=== PATIENT | female | born 1990 | race Caucasian/White ===

== ENCOUNTER 2020-11-02 19:15 | Observation (INO) | payer OTHER, SELFPAY ==
[2020-11-02 19:29] VITALS: BP 138/76; PULSE 69; RESP 16; TEMP 36.8; O2SAT 97; BMI 26.9
[2020-11-02 19:43] LABS: Bacteria Urine None Seen; RBC Urine None Seen (0-5/HPF); WBC Urine None Seen (0-5/HPF)
[2020-11-02 19:47] LABS: Pregnancy Test Urine Positive (Negative)
[2020-11-02 19:48] LABS: Appearance Urine UA CLEAR; Bilirubin Urine UA NEGATIVE (NEGATIVE); Color Urine UA YELLOW; Glucose Urine UA NEGATIVE (Negative); Ketones Urine UA TRACE (NEGATIVE); Leukocyte Esterase Urine UA NEGATIVE (NEGATIVE); Nitrite Urine UA NEGATIVE (Negative); Occult Blood Urine UA 2+ (Negative); Protein Urine UA NEGATIVE (Negative); Specific Gravity Urine UA 1.025 (1.000-1.035); Urobilinogen Urine UA 0.2 E.U./dL (0.2)
[2020-11-02 19:56] LABS: Culture Indicated Urine Cult Not Indicated; Squamous Epithelial Cell Urine 1-5 /HPF (0-5/HPF)
--- NOTE | 2020-11-02 19:57 | DI.US.S_ITS ---
PROCEDURE: US PELVIC COMPLETE INDICATIONS: medical 09/29 and bleeding TECHNIQUE: Real-time scanning was performed of the pelvic organs, with image documentation. Additional endovaginal scanning was necessary due to incomplete visualization of the adnexal and endometrial structures by transabdominal scanning. COMPARISON: None. FINDINGS: Uterus: Uterus is normal anteverted measuring 8.6 x 3.9 x 3.7 cm. The endometrium measures 3.8 mm in combined thickness. Note is made of a nabothian cyst. Ovaries: Right ovary measures 3.8 x 2.9 x 2.0 cm. Right ovary is normal in echotexture. Left ovary measures 5.9 x 3.0 x 3.1 cm. There is a 2.3 x 1.6 x 2.8 cm complex cyst with thick wall in the left ovary with internal vascularity. In addition, there is a 2.3 x 2.6 x 1.8 cm hyperechoic masslike structure with internal vascularity in the the left adnexa. Other: There is a moderate amount of free pelvic fluid. There is mild debris within the urinary bladder. IMPRESSION: 1. No retained products of conception in the uterine cavity. 2. There is a 2.3 x 1.6 x 2.8 cm complex cystic structure with thick wall in the left ovary with internal vascularity. Cannot rule out ectopic . Please correlate with sequential beta HCG. 3. A 2.3 x 2.6 x 1.8 cm hypoechoic masslike structure in the left adnexa. This could represent an ovarian dermoid. Comparison to prior outside exam would be helpful. 4. Moderate amount of free fluid in pelvis. 5. Mild debris in the urinary bladder. The result was discussed with Dr. Madden. Dictated by: Bentley Rollins M.D. on 11/02/2020 at 21:12 Approved by: Bentley Rollins M.D. on 11/02/2020 at 21:24
[2020-11-02 20:32] LABS: Add Manual Diff / Slide Review NO; Basophils Absolute Auto 100 /uL (0-100); Basophils Percent Auto 0.9 % (0-2); Eosinophils Absolute Auto 100 /uL (0-450); Eosinophils Percent Auto 1.5 % (2-4); Hematocrit 38.4 % (36-46); Hemoglobin 12.9 g/dL (12.0-16.0); Lymphocytes Absolute Auto 3400 /uL (1100-4500); Lymphocytes Percent Auto 35.1 % (25-40); Mean Corpuscular HGB Conc 33.6 % (30-36); Mean Corpuscular Hemoglobin 29.6 PG (26-34); Monocytes Absolute Auto 500 /uL (0-900); Monocytes Percent Auto 5.4 % (3-14); Neutrophils Absolute Auto 5500 /uL (1500-7000); Neutrophils Percent Auto 57.1 % (50-75); Platelet Count 246 X10^3/uL (150-400); Red Blood Cell Count 4.36 X10^6/uL (4.0-5.2); Red Cell Distribution Width 12.6 % (11.6-14.8); White Blood Cell Count 9.7 X10^3/uL (4.5-11.0)
[2020-11-02 20:46] LABS: Alanine Aminotransferase 16 IU/L (<35); Albumin 4.4 g/dL (3.5-5.0); Albumin Globulin Ratio 1.4 (1.0-2.8); Alkaline Phosphatase 57 U/L (38-126); Aspartate Aminotransferase 22 IU/L (14-36); BUN Creatinine Ratio 23.7 (6-22); Bilirubin Total 0.2 mg/dL (0.2-1.3); Blood Urea Nitrogen 23 mg/dL (7-17); Carbon Dioxide 24 mmol/L (22-32); Chloride 105 mmol/L (98-107); Estimated Glomerular Filt Rate > 60.0 mL/min (>60); Globulin 3.1 g/dL (1.7-4.1); Glucose 79 mg/dL (70-100); HEMOLYSIS < 15 (0-50); Potassium 3.6 mmol/L (3.4-5.1); Sodium 139 mmol/L (137-145); Total Protein 7.5 g/dL (6.3-8.2)
[2020-11-02 21:02] LABS: HCG Quantitative /Beta subunit 227.1 mIU/mL
--- NOTE | 2020-11-02 21:30 | ED_ITS ---
HPI - Female Genitourinary General Chief complaint: Abdominal Pain Stated complaint: ABD PAIN Time Seen by Provider: 11/02/20 21:03 Source: patient Mode of arrival: Ambulatory Limitations: no limitations History of Present Illness HPI Narrative: This is a 30-year-old A1 who had her last menstrual period on 08/27/2020. Patient had medication induced on 09/28/2020 with [facility] [place] in [place]. Patient states she passed tissue the following day. She has continued to have spotting although it has been tapering off. She has continued to have positive HCG testing strips which were provided by her providers at the Center. She states they did not do a serum hCG level that she is aware. And they sent her home with strips as well. She states she did have an ultrasound around the 19 of October which did not show any intrauterine and had at least one prior US for comparison. Today she came in because she developed significant increase in pain in her mid-pelvic region which has since improved. She describes it as being very intense causing her to double over and and since slowly improved. She has not noticed a large increase in vaginal bleeding but has continued light spotting. She denies fevers or chills. No chest pain, shortness of breath, no nausea or vomiting. No other GI or urinary symptoms. Patient states she is on oral contraceptives. She denies any other regular medications. Denies any other medical issues or prior surgeries. She also noted her menses is typically twice monthly. Related Data Home Medications Medication Instructions Recorded Confirmed norethindrone (contraceptive) 0.35 mg PO DAILY 11/02/20 11/02/20 [[place]-BE] Allergies Allergy/AdvReac Type Severity Reaction Status Date / Time No Known Allergies Allergy Uncoded 11/02/20 22:36 Review of Systems Review of Systems ROS Unobtainable: All systems reviewed & are unremarkable except as noted in HPI and below Patient History Substance Use Type: does not use Exam Narrative Exam Narrative: GENERAL: Alert and oriented x three, well-nourished female in mild distress. Patient is sitting on the edge of the bed but appears fairly comfortable HEENT: Head normocephalic, atraumatic, EOMI, pupils reactive, face symmetric, moist mucous membranes NECK: Supple, full range of motion CARDIOVASCULAR: Regular rate and rhythm without murmurs, rubs or gallops. RESPIRATORY: Breath sounds equal bilaterally, no wheezes rales or rhonchi. ABDOMEN: Soft, mild pelvic tenderness. Normoactive bowel sounds all 4 quadrants. No guarding or rebound, rigidity, no mass : No CVA tenderness EXTREMITIES: Normal range of motion, no clubbing or edema. Neurovascularly intact NEUROLOGICAL: Cranial nerves II through XII grossly intact. Moving all extremities SKIN: Warm, dry, no petechiae, no rashes or lesions. Initial Vital Signs Initial Vital Signs: Vital Signs Temperature 98.2 F 11/02/20 19:29 Pulse Rate 69 11/02/20 19:29 Respiratory Rate 16 11/02/20 19:29 Blood Pressure 138/76 11/02/20 19:29 Pulse Oximetry 97 11/02/20 19:29 Course Orders Ordered: ED Orders 11/02/20 19:38 Test Urine Stat Urinalysis and Microscopic Stat 11/02/20 19:57 US pelvic complete Stat 11/02/20 20:15 ABO RH Type Stat Antibody Screen Stat Complete Blood Count AUTO DIFF Stat Comprehensive Metabolic Panel Stat HCG Quantitative /Beta subunit Stat 11/02/20 22:18 COVID19 - ADMIT ([employer] swab/PCR) Stat Lactated Ringer's (Lactated Ringers) 1,000 mls @ 100 mls/hr IV CONT ANGELIKA Last Admin: 11/02/20 23:36 Dose: 100 mls/hr Documented by: BENIGNO Discontinued Medications Sodium Chloride (Normal Saline 0.9%) 1,000 mls @ 100 mls/hr IV CONT ANGELIKA Last Infusion: 11/02/20 23:36 Dose: 0 mls/hr Documented by: Infusion: 11/02/20 23:00 Dose: 100 mls/hr Documented by: [email or web address] Admin: 11/02/20 22:47 Dose: 100 mls/hr Documented by: [email or web address] Consultations Consultation #1: Dr. Bernabe covering for ob. Will talk with Dr. Apple from OB and have them contact us. Time: 21:51 Consultation #2: Dr. Apple in the department to evaluate the patient. Plan for observation with serial exams overnight with possible OR tomorrow. There is concern for ectopic but also some atypical features that make her suspicious for other potential causes. Vital Signs Vital signs: Vital Signs - 8 hr 11/02/20 22:00 Pulse Rate 64 Respiratory Rate 14 Blood Pressure 128/69 Pulse Oximetry 98 MDM - Female Genitourinary Lab Data Attestation: I reviewed the patient's lab results. Result diagrams: 11/02/20 20:15 11/02/20 20:15 Labs: Lab Results 11/02/20 11/02/20 11/02/20 Range/Units 19:38 19:38 20:15 WBC 9.7 (4.5-11.0) X10^3/uL RBC 4.36 (4.0-5.2) X10^6/uL Hgb 12.9 (12.0-16.0) g/dL Hct 38.4 (36-46) % MCV 88.0 (80-100) fL MCH 29.6 (26-34) PG MCHC 33.6 (30-36) % RDW 12.6 (11.6-14.8) % Plt Count 246 (150-400) X10^3/uL Neut % (Auto) 57.1 (50-75) % Lymph % (Auto) 35.1 (25-40) % [place] % (Auto) 5.4 (3-14) % Eos % (Auto) 1.5 L (2-4) % Baso % (Auto) 0.9 (0-2) % Neut # (Auto) 5500 (8982-4130) /uL Lymph # (Auto) 3400 (7110-2584) /uL [place] # (Auto) 500 (0-900) /uL Eos # (Auto) 100 (0-450) /uL Baso # (Auto) 100 (0-100) /uL Sodium (137-145) mmol/L Potassium (3.4-5.1) mmol/L Chloride (98-107) mmol/L Carbon Dioxide (22-32) mmol/L BUN (7-17) mg/dL Creatinine (0.52-1.04) mg/dL Estimated GFR (>60) mL/min BUN/Creatinine Ratio (6-22) Glucose (70-100) mg/dL Calcium (8.4-10.2) mg/dL Total Bilirubin (0.2-1.3) mg/dL AST (14-36) IU/L ALT (<35) IU/L Alkaline Phosphatase (38-126) U/L Total Protein (6.3-8.2) g/dL Albumin (3.5-5.0) g/dL Globulin (1.7-4.1) g/dL Albumin/Globulin Ratio (1.0-2.8) HCG, Quant mIU/mL Urine Color Yellow Urine Appearance Clear Urine pH 7.0 (4.5-8.0) Ur Specific [place] 1.025 (1.000-1.035) Urine Protein Negative (Negative) Urine Glucose (UA) Negative (Negative) g/dL Urine Ketones Trace H (NEGATIVE) Urine Occult Blood 2+ H (Negative) Urine Nitrate Negative (Negative) Urine Bilirubin Negative (NEGATIVE) Urine Urobilinogen 0.2 (0.2) E.U./dL Ur Leukocyte Esterase Negative (NEGATIVE) Urine RBC None seen (0-5/HPF) Urine WBC None seen (0-5/HPF) Ur Squamous Epith Cells 1-5 /hpf (0-5/HPF) Urine Bacteria None seen (None) Ur Culture Indicated? Cult not indicated Urine Test Positive H (Negative) SARS-CoV-2 (PCR) (Negative) Blood Type Antibody Screen 11/02/20 11/02/20 11/02/20 Range/Units 20:15 20:15 22:18 WBC (4.5-11.0) X10^3/uL RBC (4.0-5.2) X10^6/uL Hgb (12.0-16.0) g/dL Hct (36-46) % MCV (80-100) fL MCH (26-34) PG MCHC (30-36) % RDW (11.6-14.8) % Plt Count (150-400) X10^3/uL Neut % (Auto) (50-75) % Lymph % (Auto) (25-40) % [place] % (Auto) (3-14) % Eos % (Auto) (2-4) % Baso % (Auto) (0-2) % Neut # (Auto) (1981-6630) /uL Lymph # (Auto) (1518-3642) /uL [place] # (Auto) (0-900) /uL Eos # (Auto) (0-450) /uL Baso # (Auto) (0-100) /uL Sodium 139 (137-145) mmol/L Potassium 3.6 (3.4-5.1) mmol/L Chloride 105 (98-107) mmol/L Carbon Dioxide 24 (22-32) mmol/L BUN 23 H (7-17) mg/dL Creatinine 0.97 (0.52-1.04) mg/dL Estimated GFR > 60.0 (>60) mL/min BUN/Creatinine Ratio 23.7 H (6-22) Glucose 79 (70-100) mg/dL Calcium 9.0 (8.4-10.2) mg/dL Total Bilirubin 0.2 (0.2-1.3) mg/dL AST 22 (14-36) IU/L ALT 16 (<35) IU/L Alkaline Phosphatase 57 (38-126) U/L Total Protein 7.5 (6.3-8.2) g/dL Albumin 4.4 (3.5-5.0) g/dL Globulin 3.1 (1.7-4.1) g/dL Albumin/Globulin Ratio 1.4 (1.0-2.8) HCG, Quant 227.1 mIU/mL Urine Color Urine Appearance Urine pH (4.5-8.0) Ur Specific [place] (1.000-1.035) Urine Protein (Negative) Urine Glucose (UA) (Negative) g/dL Urine Ketones (NEGATIVE) Urine Occult Blood (Negative) Urine Nitrate (Negative) Urine Bilirubin (NEGATIVE) Urine Urobilinogen (0.2) E.U./dL Ur Leukocyte Esterase (NEGATIVE) Urine RBC (0-5/HPF) Urine WBC (0-5/HPF) Ur Squamous Epith Cells (0-5/HPF) Urine Bacteria (None) Ur Culture Indicated? Urine Test (Negative) SARS-CoV-2 (PCR) Negative (Negative) Blood Type O Positive Antibody Screen Negative Imaging Data US - OB: Radiologist's Impression: Ronda Diaz 30 F [address] [id number] ReportSigned Patient: Ronda DiazMR#: [id number]: 1990Acct:[id number]/Sex: 30 / FDate of Service: 11/02/20Loc: EDAccession Number: [id number] Procedure: US pelvic complete Ordering Provider: Marla Madden D.O. PROCEDURE: US PELVIC COMPLETE INDICATIONS: medical / and bleeding TECHNIQUE: Real-time scanning was performed of the pelvic organs, with image documentation. Additional endovaginal scanning was necessary due to incomplete visualization of the adnexal and endometrial structures by transabdominal scanning. COMPARISON: None. FINDINGS: Uterus: Uterus is normal anteverted measuring 8.6 x 3.9 x 3.7 cm. The endometrium measures 3.8 mm in combined thickness. Note is made of a nabothian cyst. Ovaries: Right ovary measures 3.8 x 2.9 x 2.0 cm. Right ovary is normal in echotexture. Left ovary measures 5.9 x 3.0 x 3.1 cm. There is a 2.3 x 1.6 x 2.8 cm complex cyst with thick wall in the left ovary with internal vascularity. In addition, there is a 2.3 x 2.6 x 1.8 cm hyperechoic masslike structure with internal vascularity in the the left adnexa. Other: There is a moderate amount of free pelvic fluid. There is mild debris within the urinary bladder. IMPRESSION: 1. No retained products of conception in the uterine cavity. 2. There is a 2.3 x 1.6 x 2.8 cm complex cystic structure with thick wall in the left ovary with internal vascularity. Cannot rule out ectopic . Please correlate with sequential beta HCG. 3. A 2.3 x 2.6 x 1.8 cm hypoechoic masslike structure in the left adnexa. This could represent an ovarian dermoid. Comparison to prior outside exam would be helpful. 4. Moderate amount of free fluid in pelvis. 5. Mild debris in the urinary bladder. The result was discussed with Dr. Madden. Dictated by: Bentley Rollins M.D. on 11/02/2020 at 21:12 Approved by: Bentley Rollins M.D. on 11/02/2020 at 21:24 MDM Narrative Medical decision making narrative: Attempted to contact [facility] in [place] to get prior ultrasound reports/visits but were unable to contact. But by patient report she had negative ultrasound last 2 weeks. Ultrasound shows changes concerning for possible ectopic although there is also an area of cystic changes in the adnexa as well. Patient's hCG today is 220 range, and we do not have priors for comparison but she has had persistently positive HCGs since her medically induced with my for mifepristone and misoprostol at 5 weeks by dates. Patient is much more comfortable at this time. Discussed with TEST MAN Dr. Apple who evaluated patient in the department and plans to watch patient overnight with serial exams, repeat labs and observation for potential emergent laparoscopy overnight if any concerning changes. Discharge Plan Departure Patient Disposition: Admitted as Observation Clinical Impression: , ectopic Admit Date/Time: 11/02/20 22:32 Admit Provider: Cristel Apple
[2020-11-02 22:00] VITALS: BP 128/69; PULSE 64; RESP 14; O2SAT 98
--- NOTE | 2020-11-02 22:35 | P.HP_ITS ---
History of Present Illness History of Present Illness Date Patient Seen: 11/02/20 Time Patient Seen: 22:35 Date of Onset of Symptoms: 11/02/20 Chief complaint: ABD PAIN Narrative: This patient is a 30 yo 4 weeks s/p medication on 09/28, presenting with a short period of worsening lower abdominal pain now improved to a dull ache. The patient reports that she presented to [facility] [place] in [place], where a transvaginal ultrasound was performed and an intrauterine was confirmed. She underwent a medication with mifepristone and misoprostol, and reports that she passed a moderate amount of tissue with severe cramping that improved over several days. Her bleeding slowed significantly, but she continued to have some pelvic pressure and intermittent spotting, and re-presented to [facility] on 10/19. She underwent a repeat transvaginal ultrasound, where she reports that she was shown the images, told her pressure was unrelated to an ongoing process and that all of her POCs had passed, and told that it could be a total of 4-6 weeks before her B-HCG decreased to undetectable. Early this afternoon, she developed severe cramping and lower abdominal pressure, leading her to present to the ED. Her vaginal bleeding remains unchanged, and she denies dizziness, fevers, chills, nausea, vomiting, UTI symptoms, change in bowel habits, or any systemic symptoms. She declined pain medications in the ED, and reports that over her few hours of observation her pain has decreased significantly to a dull ache. She has been taking OCPs since a few days after the medication , and reports that she reliably remembers this medication. 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 She has a history of HPV but denies any other history of STDs, PID, or pelvic infection. She denies any history of obstetrics and gynecology professor or any other surgery, and denies any other significant medical, family, or social history. Patient History Family & Social History Safety & Behavioral: Feels Safe in Current Yes Environment Been Physically Hurt or No Threatened By a Person Tobacco & Substance use: Smoking Status Former smoker Substance Use Type does not use Meds Home Medications and Allergies Home Medications Medication Instructions Recorded Confirmed Type valacyclovir 2,000 mg PO Q12H 1 Days #0 tab 04/29/17 Rx Allergies Allergy/AdvReac Type Severity Reaction Status Date / Time No Known Allergies Allergy Uncoded 11/02/20 22:36 Review of Systems Constitutional Constitutional: Reports system reviewed and no additional complaints, except as documented Cardiovascular Cardiovascular: Reports system reviewed and no additional complaints, except as documented Respiratory Respiratory: Reports system reviewed and no additional complaints, except as documented Gastrointestinal Gastrointestinal: Reports as per HPI Genitourinary Genitourinary: Reports as per HPI Neurologic Neurologic: Reports system reviewed and no additional complaints, except as documented Exam Vital Signs (past 8 hours): - 11/02/20 19:29 Temperature 98.2 F Pulse Rate 69 Respiratory Rate 16 Blood Pressure 138/76 Pulse Oximetry 97 Oxygen Delivery Method Room Air Const General: cooperative, healthy appearing, comfortable and well groomed Other: Sitting up on end of bed, gently swinging legs while relaying history with no obvious discomfort. GI Palpation: soft and tender (mild LLQ tenderness, no rebound or guarding.) Extrem General: normal to inspection Objective Labs Result Diagrams: 11/02/20 20:15 11/02/20 20:15 Labs: Laboratory Results - last 24 hr 11/02/20 11/02/20 11/02/20 19:38 19:38 20:15 WBC 9.7 RBC 4.36 Hgb 12.9 Hct 38.4 MCV 88.0 MCH 29.6 MCHC 33.6 RDW 12.6 Plt Count 246 Neut % (Auto) 57.1 Lymph % (Auto) 35.1 [place] % (Auto) 5.4 Eos % (Auto) 1.5 L Baso % (Auto) 0.9 Neut # (Auto) 5500 Lymph # (Auto) 3400 [place] # (Auto) 500 Eos # (Auto) 100 Baso # (Auto) 100 Sodium Potassium Chloride Carbon Dioxide BUN Creatinine Estimated GFR BUN/Creatinine Ratio Glucose Calcium Total Bilirubin AST ALT Alkaline Phosphatase Total Protein Albumin Globulin Albumin/Globulin Ratio HCG, Quant Urine Color Yellow Urine Appearance Clear Urine pH 7.0 Ur Specific [place] 1.025 Urine Protein Negative Urine Glucose (UA) Negative Urine Ketones Trace H Urine Occult Blood 2+ H Urine Nitrate Negative Urine Bilirubin Negative Urine Urobilinogen 0.2 Ur Leukocyte Esterase Negative Urine RBC None seen Urine WBC None seen Ur Squamous Epith Cells 1-5 /hpf Urine Bacteria None seen Ur Culture Indicated? Cult not indicated Urine Test Positive H Blood Type 11/02/20 11/02/20 20:15 20:15 WBC RBC Hgb Hct MCV MCH MCHC RDW Plt Count Neut % (Auto) Lymph % (Auto) [place] % (Auto) Eos % (Auto) Baso % (Auto) Neut # (Auto) Lymph # (Auto) [place] # (Auto) Eos # (Auto) Baso # (Auto) Sodium 139 Potassium 3.6 Chloride 105 Carbon Dioxide 24 BUN 23 H Creatinine 0.97 Estimated GFR > 60.0 BUN/Creatinine Ratio 23.7 H Glucose 79 Calcium 9.0 Total Bilirubin 0.2 AST 22 ALT 16 Alkaline Phosphatase 57 Total Protein 7.5 Albumin 4.4 Globulin 3.1 Albumin/Globulin Ratio 1.4 HCG, Quant 227.1 Urine Color Urine Appearance Urine pH Ur Specific [place] Urine Protein Urine Glucose (UA) Urine Ketones Urine Occult Blood Urine Nitrate Urine Bilirubin Urine Urobilinogen Ur Leukocyte Esterase Urine RBC Urine WBC Ur Squamous Epith Cells Urine Bacteria Ur Culture Indicated? Urine Test Blood Type O Positive Assessment & Plan Assessment & Plan narrative: This patient presents approximately 1 month after a medication at an accredited center, with reported confirmed intrauterine prior to the procedure and reporting no abnormalities on follow up transvaginal US. She has been reliably taking OCPs since the procedure, and though she still has a low BHCG blood level, her initial level is unknown. Given her adnexal findings and her B-HCG, ectopic is certainly on the differential, but the patient is stable, improving, and well appearing. Her presentation is also consistent with a ruptured corpus luteum or other ovarian cyst, and she appears to be improving without treatment, with no indication of ongoing hemorrhage. The patient strongly desires to avoid surgery unless necessary, but lives in [place], remote from the hospital. We discussed the above differential at length including the risks and benefits of admission for monitoring and expectant management vs. diagnostic laparoscopy, and the patient vocalized understanding. She will be admitted overnight for serial abdominal exams, repeat labs in the morning, and request for records of her prior US in the AM when the clinic is open. - Patient to remain NPO - CBC to be repeated in AM - LR @ 100ccs/hr overnight - VS q4 - notify physician if patient requires pain medications - repeat abdominal exam in AM, discussed potential for emergent laparoscopy overnight if symptoms or VS worsen
[2020-11-02] MEDS: SODIUM CHLORIDE 0.9% 1,000 ML 100 ML IV (22:47)
[2020-11-02 23:00] VITALS: BP 100/58; PULSE 56; RESP 16; TEMP 36.3; O2SAT 93
[2020-11-02 23:16] LABS: COVID19 - ADMIT (NP swab/PCR) Negative (Negative)
[2020-11-02] MEDS: LACTATED RINGERS 1,000 ML 100 ML IV (23:36)
[2020-11-02 23:39] VITALS: BMI 26.7
[2020-11-02 23:45] VITALS: BP 100/48
[2020-11-03 01:01] VITALS: BP 86/46; PULSE 50
[2020-11-03 01:33] VITALS: BP 90/46; PULSE 54
--- NOTE | 2020-11-03 01:35 | PC.NURSE ---
patient admitted to room 221 from ER per wheelchair. Is alert and oriented. Breath sounds CTA with RA sat of 93%. HRR but bradycardic with rate in 50's. Denies nausea. Came to ER with severe abdominal pain but states pain is tolerable at 2/10 in lower abdomen at this time. BT present and abdomen is soft but tender. Denies dysuria, frequency or urgency with urination. Is having some vaginal spotting. Is able to move herself in bed. Bilateral calf SCD's were applied. Instructed to call for SBA when getting out of bed and she verbalizes understanding. Fall risk score is low. Will be NPO at this time. Oriented to call light and bed controls. Noted BP at 0101 was 86/46 so rechecked now and is 90/46. Denies any dizziness/lightheadedness and denies any further pain at this time.
[2020-11-03 03:00] VITALS: BP 91/51; PULSE 51
[2020-11-03 05:00] VITALS: BP 97/52; PULSE 62; RESP 18; TEMP 36.6; O2SAT 98
[2020-11-03 05:58] LABS: Add Manual Diff / Slide Review NO; Basophils Absolute Auto 100 /uL (0-100); Basophils Percent Auto 0.9 % (0-2); Eosinophils Absolute Auto 200 /uL (0-450); Eosinophils Percent Auto 2.3 % (2-4); Hematocrit 35.1 % (36-46); Hemoglobin 11.9 g/dL (12.0-16.0); Lymphocytes Absolute Auto 3100 /uL (1100-4500); Lymphocytes Percent Auto 42.1 % (25-40); Mean Corpuscular HGB Conc 33.9 % (30-36); Mean Corpuscular Hemoglobin 29.6 PG (26-34); Mean Corpuscular Volume 87.5 fL (80-100); Monocytes Absolute Auto 400 /uL (0-900); Monocytes Percent Auto 5.8 % (3-14); Neutrophils Absolute Auto 3500 /uL (1500-7000); Neutrophils Percent Auto 48.9 % (50-75); Platelet Count 219 X10^3/uL (150-400); Red Blood Cell Count 4.02 X10^6/uL (4.0-5.2); Red Cell Distribution Width 12.8 % (11.6-14.8); White Blood Cell Count 7.3 X10^3/uL (4.5-11.0)
[2020-11-03 07:00] VITALS: BP 94/45; PULSE 74; RESP 18; TEMP 36.9; O2SAT 99
--- NOTE | 2020-11-03 07:47 | PM.PN.1 ---
Subjective Subjective Date Patient Seen: 11/03/20 Time Patient Seen: 07:30 Interval history: This patient is admitted for concern for ectopic versus ruptured hemorrhagic corpus luteum cyst. This morning, the patient reports that her pain is a 1-2/10 when she changes position, but she is otherwise feeling well. She is ambulating, has normal bowel bladder habits, and has been kept NPO overnight. Her vital signs are stable, and her hemoglobin has dropped slightly in the setting of ongoing IV hydration. Exam Vital Signs (past 8 hours): - 11/03/20 01:01 11/03/20 01:33 11/03/20 03:00 Temperature Pulse Rate 50 L 54 L 51 L Respiratory Rate Blood Pressure 86/46 L 90/46 L 91/51 L Pulse Oximetry 11/03/20 05:00 Temperature 97.9 F Pulse Rate 62 Respiratory Rate 18 Blood Pressure 97/52 L Pulse Oximetry 98 Oxygen Delivery Method Room Air Oxygen Flow Rate 0 Resp Effort & Inspection: normal respiratory effort Auscultation: clear to auscultation bilaterally Cardio Rate: regular rate Rhythm: regular rhythm GI Palpation: soft and tender (Mild, left lower quadrant) Objective Labs Result Diagrams: 11/03/20 11:35 11/02/20 20:15 Labs: Laboratory Results - last 24 hr 11/02/20 11/02/20 11/02/20 19:38 19:38 20:15 WBC 9.7 RBC 4.36 Hgb 12.9 Hct 38.4 MCV 88.0 MCH 29.6 MCHC 33.6 RDW 12.6 Plt Count 246 Neut % (Auto) 57.1 Lymph % (Auto) 35.1 [place] % (Auto) 5.4 Eos % (Auto) 1.5 L Baso % (Auto) 0.9 Neut # (Auto) 5500 Lymph # (Auto) 3400 [place] # (Auto) 500 Eos # (Auto) 100 Baso # (Auto) 100 Sodium Potassium Chloride Carbon Dioxide BUN Creatinine Estimated GFR BUN/Creatinine Ratio Glucose Calcium Total Bilirubin AST ALT Alkaline Phosphatase Total Protein Albumin Globulin Albumin/Globulin Ratio HCG, Quant Urine Color Yellow Urine Appearance Clear Urine pH 7.0 Ur Specific [place] 1.025 Urine Protein Negative Urine Glucose (UA) Negative Urine Ketones Trace H Urine Occult Blood 2+ H Urine Nitrate Negative Urine Bilirubin Negative Urine Urobilinogen 0.2 Ur Leukocyte Esterase Negative Urine RBC None seen Urine WBC None seen Ur Squamous Epith Cells 1-5 /hpf Urine Bacteria None seen Ur Culture Indicated? Cult not indicated Urine Test Positive H SARS-CoV-2 (PCR) Blood Type Antibody Screen 11/02/20 11/02/20 11/02/20 20:15 20:15 22:18 WBC RBC Hgb Hct MCV MCH MCHC RDW Plt Count Neut % (Auto) Lymph % (Auto) [place] % (Auto) Eos % (Auto) Baso % (Auto) Neut # (Auto) Lymph # (Auto) [place] # (Auto) Eos # (Auto) Baso # (Auto) Sodium 139 Potassium 3.6 Chloride 105 Carbon Dioxide 24 BUN 23 H Creatinine 0.97 Estimated GFR > 60.0 BUN/Creatinine Ratio 23.7 H Glucose 79 Calcium 9.0 Total Bilirubin 0.2 AST 22 ALT 16 Alkaline Phosphatase 57 Total Protein 7.5 Albumin 4.4 Globulin 3.1 Albumin/Globulin Ratio 1.4 HCG, Quant 227.1 Urine Color Urine Appearance Urine pH Ur Specific [place] Urine Protein Urine Glucose (UA) Urine Ketones Urine Occult Blood Urine Nitrate Urine Bilirubin Urine Urobilinogen Ur Leukocyte Esterase Urine RBC Urine WBC Ur Squamous Epith Cells Urine Bacteria Ur Culture Indicated? Urine Test SARS-CoV-2 (PCR) Negative Blood Type O Positive Antibody Screen Negative 11/03/20 05:35 WBC 7.3 RBC 4.02 Hgb 11.9 L Hct 35.1 L MCV 87.5 MCH 29.6 MCHC 33.9 RDW 12.8 Plt Count 219 Neut % (Auto) 48.9 L Lymph % (Auto) 42.1 H [place] % (Auto) 5.8 Eos % (Auto) 2.3 Baso % (Auto) 0.9 Neut # (Auto) 3500 Lymph # (Auto) 3100 [place] # (Auto) 400 Eos # (Auto) 200 Baso # (Auto) 100 Sodium Potassium Chloride Carbon Dioxide BUN Creatinine Estimated GFR BUN/Creatinine Ratio Glucose Calcium Total Bilirubin AST ALT Alkaline Phosphatase Total Protein Albumin Globulin Albumin/Globulin Ratio HCG, Quant Urine Color Urine Appearance Urine pH Ur Specific [place] Urine Protein Urine Glucose (UA) Urine Ketones Urine Occult Blood Urine Nitrate Urine Bilirubin Urine Urobilinogen Ur Leukocyte Esterase Urine RBC Urine WBC Ur Squamous Epith Cells Urine Bacteria Ur Culture Indicated? Urine Test SARS-CoV-2 (PCR) Blood Type Antibody Screen [facility] Social History household members: spouse Smoking Status: Former smoker alcohol intake: current Assessment & Plan Assessment & Plan narrative: Given her overall clinical history, we discussed that the risk of an ongoing ectopic is low, but that I recommend she stay for 1 more hemoglobin measurement to assure stability and another abdominal exam later in the morning. Discussed that if she remains stable, she could go home with close outpatient follow-up and a follow-up HCG 48 hours after the 1st. The patient is in agreement with this plan, and will remain NPO until this lab values back. She was signed out to my partner, Dr. Duran -continue IV fluids, 100 cc LR per hour -continue NPO -repeat hemoglobin ordered for 4-6 hours after a.m. draw
[2020-11-03 09:00] VITALS: BP 95/49; PULSE 52; RESP 18; TEMP 37; O2SAT 98
[2020-11-03] MEDS: LACTATED RINGERS 1,000 ML 100 ML IV (09:13)
[2020-11-03 09:29] LABS: Add Manual Diff / Slide Review NO; Basophils Absolute Auto 100 /uL (0-100); Eosinophils Absolute Auto 100 /uL (0-450); Hematocrit 37.1 % (36-46); Hemoglobin 12.5 g/dL (12.0-16.0); Lymphocytes Absolute Auto 2700 /uL (1100-4500); Lymphocytes Percent Auto 40.4 % (25-40); Mean Corpuscular HGB Conc 33.5 % (30-36); Mean Corpuscular Hemoglobin 29.3 PG (26-34); Mean Corpuscular Volume 87.5 fL (80-100); Monocytes Absolute Auto 400 /uL (0-900); Monocytes Percent Auto 5.6 % (3-14); Neutrophils Absolute Auto 3400 /uL (1500-7000); Platelet Count 225 X10^3/uL (150-400); Red Blood Cell Count 4.24 X10^6/uL (4.0-5.2); Red Cell Distribution Width 12.7 % (11.6-14.8); White Blood Cell Count 6.6 X10^3/uL (4.5-11.0)
[2020-11-03 11:43] LABS: Add Manual Diff / Slide Review NO; Basophils Absolute Auto 100 /uL (0-100); Basophils Percent Auto 0.9 % (0-2); Eosinophils Absolute Auto 100 /uL (0-450); Eosinophils Percent Auto 1.7 % (2-4); Hemoglobin 12.8 g/dL (12.0-16.0); Lymphocytes Absolute Auto 2500 /uL (1100-4500); Lymphocytes Percent Auto 41.1 % (25-40); Mean Corpuscular HGB Conc 33.7 % (30-36); Mean Corpuscular Hemoglobin 29.6 PG (26-34); Mean Corpuscular Volume 87.8 fL (80-100); Monocytes Absolute Auto 300 /uL (0-900); Monocytes Percent Auto 5.3 % (3-14); Neutrophils Absolute Auto 3100 /uL (1500-7000); Platelet Count 225 X10^3/uL (150-400); Red Blood Cell Count 4.33 X10^6/uL (4.0-5.2); Red Cell Distribution Width 12.7 % (11.6-14.8); White Blood Cell Count 6.2 X10^3/uL (4.5-11.0)
--- NOTE | 2020-11-03 11:47 | PC.NURSE ---
Patient educated about diet, activity, medications, follow up w/ doctor and when to get labs drawn. Patient was also educated about when to return and s/s of infection. Patient verbalized understanding of all discharge teaching. Patient left facility via private vehicle w/ all personal belongings.
--- NOTE | 2020-11-03 13:58 | CM.DANOTE ---
Discharge Planning/Care Management DCPlanning note: case received and discussed in Team Rounds. Pt is a 30 year old who admitted last night to care of INFORMATION ASSURANCE SPECIALIST Dr. Apple. Her Fellow's colleague did see pt this morning and ok'd her for d/c home and with followup at their clinic. A check in now shows that pt did leave for home before noon. Payer: Marilynn Brooks CM Discharge Assessment Start: 11/03/20 13:57 Freq: Status: Active Protocol: Document 11/03/20 13:57 ITV (Rec: 11/03/20 13:58 ITV [id number]) Discharge Planning Assessment Advance Directives? No History Provided By Medical Record Prior Living Arrangements Apartment/Condo Household Members spouse
--- NOTE | 2020-11-08 12:57 | PM.DS.1 ---
History of Present Illness History of Present Illness Date Patient Seen: 11/03/20 Time Patient Seen: 07:45 Date of Onset of Symptoms: 11/02/20 Chief complaint: ABD PAIN Narrative: This patient is a 30 yo 4 weeks s/p medication on 09/28, presenting with a short period of worsening lower abdominal pain now improved to a dull ache. The patient reports that she presented to [facility] in [place], where a transvaginal ultrasound was performed and an intrauterine was confirmed. She underwent a medication with mifepristone and misoprostol, and reports that she passed a moderate amount of tissue with severe cramping that improved over several days. Her bleeding slowed significantly, but she continued to have some pelvic pressure and intermittent spotting, and re-presented to [facility] on 10/19. She underwent a repeat transvaginal ultrasound, where she reports that she was shown the images, told her pressure was unrelated to an ongoing process and that all of her POCs had passed, and told that it could be a total of 4-6 weeks before her B-HCG decreased to undetectable. Early this afternoon, she developed severe cramping and lower abdominal pressure, leading her to present to the ED. Her vaginal bleeding remains unchanged, and she denies dizziness, fevers, chills, nausea, vomiting, UTI symptoms, change in bowel habits, or any systemic symptoms. She declined pain medications in the ED, and reports that over her few hours of observation her pain has decreased significantly to a dull ache. She has been taking OCPs since a few days after the medication , and reports that she reliably remembers this medication. 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 She has a history of HPV but denies any other history of STDs, PID, or pelvic infection. 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 Discharge Providers Provider Date of admission: 11/02/20 22:32 Discharge Date: 11/03/20 Discharge provider: Cristel Apple MD Summary Hospital Course Discharge Diagnosis: Ruptured corpus luteum cyst Hospital Course: This patient was admitted with abdominal pain and a left adnexal mass in the setting of a recent termination of , with positive test and ultrasound negative for retained products of conception. The overall clinical picture was less consistent with a ruptured ectopic than with a ruptured corpus luteum cyst or other ovarian process, but given the positive beta HCG ectopic could not be ruled out. The patient lives remote from the hospital and was admitted for serial abdominal exams and hemoglobin levels. She remained stable and her pain almost entirely resolved, she was discharged home with plan for follow-up beta HCG and hemoglobin level in 48 hours and precautions for return. Status at Discharge Cognitive/behavioral status at discharge: oriented Functional status at discharge: independent ambulation Overall status at discharge: patient is progressing back to baseline Time Spent with Patient Time spent: Greater than 30 minutes Exam Vital Signs (past 8 hours): Oxygen Delivery Method Room Air Oxygen Flow Rate 0 Narrative Exam Narrative: See day of discharge progress note Objective Labs Result Diagrams: 11/03/20 11:35 11/02/20 20:15 [facility] Social History household members: spouse Smoking Status: Former smoker alcohol intake: current Discharge Assessment & Plan Assessment and Plan Assessment: This patient is stable for discharge home with close outpatient follow-up. Precautions for return were discussed and the patient vocalized understanding. Plan of Treatment: Repeat beta HCG and CBC in 48 hours. Discharge Plan Discharge Plan Patient Disposition: Home Provider Discharge Comment: Patient to be discharged to home with close observation and serial HCGs to be performed. Expectant management is planned as long as her pain remains stable/subsides and her serial HCGs are declining appropriately. If however her HCGs are plateauing or rising, the possibility of using methotrexate to eliminate residual trophoblastic tissue would be a possibility and was discussed with the patient prior to discharge. Precautionary symptoms were reviewed with the patient and she is to return on 11/05/2020 for a quantitative hCG. She will be contacted by me or by Dr. Cristel Apple with those results on the afternoon of 11/05/2020 or no later than 11/06/2020. Patient also advised to contact the office or proceed to the emergency room with any sudden episodes of severe abdominal/pelvic pain and/or heavy vaginal bleeding. Work excuse provided for today's absence. Discharge orders & Medications Prescriptions: Continued norethindrone (contraceptive) [Nury-BE] 0.35 mg Tablet 0.35 mg PO DAILY RF: 0 Follow up/Referrals: Mohan Duran MD [Physician] - Discharge Health Status Multidrug resistant organism: No MDRO Diet/Activity/Treatments Diet: Diet as Tolerated Activity: As tolerated Skin/Wound/Dressing Care Report to your healthcare provider any signs of infection, such as:: chills, fever and increased pain Visit Report/Discharge Packet Instructions: Norethindrone Discharge Data Attending Provider: Cristel Apple
== END 2020-11-03 11:51 | disposition home or self-care (01) ==
LOC: ED 22:03 → AC 22:33
PROVIDERS: Admitting Provider Obstetrics & Gynecology; Emergency Provider Emergency Medicine; Visit Provider Obstetrics & Gynecology
DX: R10.2 Pelvic and perineal pain (principal); O04.6 Delayed or excessive hemorrhage following (induced) termination of pregnancy; Z20.822 Contact with and (suspected) exposure to COVID-19
CPT/HCPCS: 36415; 76830; 76856; 80053; 81001; 81025; 82962; 84702; 85025; 86850; 86900; 86901; 87635; 96360; 96361; 99283; 99284; C9803; G0378

== ENCOUNTER → 2020-11-05 16:21 | Outpatient (CLI) | payer OTHER, SELFPAY ==
[2020-11-02 23:39] VITALS: BMI 26.7
[2020-11-05 16:38] LABS: Add Manual Diff / Slide Review NO; Basophils Absolute Auto 100 /uL (0-100); Basophils Percent Auto 0.7 % (0-2); Eosinophils Absolute Auto 100 /uL (0-450); Eosinophils Percent Auto 1.1 % (2-4); Hematocrit 37.1 % (36-46); Hemoglobin 12.5 g/dL (12.0-16.0); Lymphocytes Absolute Auto 2300 /uL (1100-4500); Lymphocytes Percent Auto 22.9 % (25-40); Mean Corpuscular HGB Conc 33.8 % (30-36); Mean Corpuscular Hemoglobin 29.6 PG (26-34); Mean Corpuscular Volume 87.7 fL (80-100); Monocytes Absolute Auto 500 /uL (0-900); Monocytes Percent Auto 4.6 % (3-14); Neutrophils Absolute Auto 7200 /uL (1500-7000); Neutrophils Percent Auto 70.7 % (50-75); Platelet Count 223 X10^3/uL (150-400); Red Blood Cell Count 4.23 X10^6/uL (4.0-5.2); Red Cell Distribution Width 12.9 % (11.6-14.8); White Blood Cell Count 10.1 X10^3/uL (4.5-11.0)
[2020-11-05 17:12] LABS: HCG Quantitative /Beta subunit 160.7 mIU/mL
== END ==
PROVIDERS: Referring Provider Obstetrics & Gynecology; Visit Provider Obstetrics & Gynecology
DX: K66.1 Hemoperitoneum (principal); E34.9 Endocrine disorder, unspecified
CPT/HCPCS: 36415; 84702; 85025

== ENCOUNTER 2022-10-15 00:40 | Emergency (ER) | payer OTHER, SELFPAY ==
[2022-10-15 00:50] VITALS: BP 122/73; PULSE 85; RESP 16; TEMP 37.2; O2SAT 100; BMI 28.3
[2022-10-15 02:06] LABS: COVID-19 CEPHEID 4-PLEX PCR Negative (Negative); Influenza A - CEPHEID Flu A NEGATIVE (NEGATIVE); Influenza B - CEPHEID Flu B NEGATIVE (NEGATIVE); Respiratory Syncytial Virus Negative (Negative)
--- NOTE | 2022-10-15 04:05 | ED_ITS ---
HPI - URI/Sore Throat General Chief Complaint: Upper Respiratory Symptoms Stated Complaint: Severe throat pain. Difficulty breathing Time Seen by Provider: 10/15/22 01:10 Source: patient Mode of arrival: Family Vehicle History of Present Illness HPI Narrative: Patient is a 32-year-old female who presents with sore throat ongoing for the last 4 days. She denies any fever or chills. She says it hurts pretty bad to swallow. She denies cough. She would a rapid strep earlier in the day which was negative. She is been taking Tylenol ibuprofen without any relief. She took ibuprofen before bed but woke up in severe pain. Denies any headache. Nausea vomiting or abdominal pain. Related Data Home Medications Medication Instructions Recorded Confirmed drospirenone 3 mg-ethinyl 1 tab PO DAILY 01/27/21 01/27/21 estradiol 0.02 mg tablet (Loryna (28)) Allergies Allergy/AdvReac Type Severity Reaction Status Date / Time No Known Allergies Allergy Uncoded 11/02/20 22:36 Review of Systems Review of Systems ROS Unobtainable: All systems reviewed & are unremarkable except as noted in HPI and below Patient History Medical History Ovarian cyst Social History household members: spouse Smoking Status: Former smoker alcohol intake: current Smoking Status: Former smoker alcohol intake frequency: holidays/special occasions only Substance Use Type: does not use Exam Initial Vital Signs Initial Vital Signs: Vital Signs Temperature 98.9 F 10/15/22 00:50 Pulse Rate 85 10/15/22 00:50 Respiratory Rate 16 10/15/22 00:50 Blood Pressure 122/73 10/15/22 00:50 Pulse Oximetry 100 10/15/22 00:50 Oxygen Delivery Method Room Air 10/15/22 00:50 GENERAL: Alert 32-year-old female appears uncomfortable and in no acute dist ress. HEENT: Head atraumatic,EOMI, pupils reactive, face symmetric, moist mucous membranes PHARYNX: Erythematous no uvula swelling or deviation no tonsillar exudate or enlarged tonsils minimal cervical lymphadenopathy CARDIOVASCULAR: Regular rate and rhythm without murmurs, rubs or gallops. RESPIRATORY: Breath sounds equal bilaterally, no wheezes rales or rhonchi. ABDOMEN: Soft, nontender. Normoactive bowel sounds all 4 quadrants. No guarding or rebound. EXTREMITIES: Normal range of motion, no clubbing or edema. Neurovascularly intact NEUROLOGICAL: Alert and oriented x4. SKIN: Warm, dry, no laceration, no petechiae, no rashes or lesions. Course Orders Ordered: ED Orders 10/15/22 01:20 Covid-19 + FLU A/B + RSV - PCR Stat Strep Screen Stat 10/15/22 04:17 Strep Grp A by PCR Rapid Stat Discontinued Medications Acetaminophen (Acetaminophen 325 Mg Tablet) 975 mg PO NOW ONE Stop: 10/15/22 04:19 Dexamethasone (Dexamethasone 10 Mg/Ml Vial) 10 mg PO NOW ONE Stop: 10/15/22 04:18 Vital Signs Vital signs: Vital Signs - 8 hr 10/15/22 00:50 Temperature 98.9 F Pulse Rate 85 Respiratory Rate 16 Blood Pressure 122/73 Pulse Oximetry 100 Oxygen Delivery Method Room Air MDM - URI/Sore Throat Lab Data Labs: Lab Results 10/15/22 Range/Units 01:20 SARS-CoV-2 (PCR) Negative (Negative) Influenza A (RT-PCR) Flu a negative (NEGATIVE) Influenza B (RT-PCR) Flu b negative (NEGATIVE) RSV (PCR) Negative (Negative) MDM Narrative Medical decision making narrative: Patient is a healthy 32-year-old female who presents with 4 days of sore throat. She would rapid earlier today which was negative. Viral panel and repeat rapid strep are negative again today. She has a culture pending. Exam pharynx is erythematous but it was patent she has no evidence of peritonsillar abscess or retropharyngeal abscess she is managing her secretions. She is no significant cervical lymphadenopathy. I suspect a viral syndrome. She is given 1 dose of dexamethasone to help with some pain. Discharge Plan Departure Patient Disposition: Home Clinical Impression: Acute viral pharyngitis Instructions: DI for Viral Pharyngitis Activity Restrictions/Additional Instructions: *You have been diagnosed with viral pharyngitis *What to do: At this time rapid strep is negative viral panel is negative. We will call you in 2-3 days if you should need antibiotics. Stay hydrated. You did get 1 dose of dexamethasone here in the ED this hopefully help take away some of the inflammation *Continue to take medications as directed Tylenol Motrin as directed for pain *Follow up with your primary care provider in 2-3 days or call [phone] *Return to ER if you should have increasing pain difficulty swallowing or any new, worsening or concerning symptoms Prescriptions: No Action drospirenone-ethinyl estradiol [Loryna (28)] 3-0.02 mg tablet 1 tab PO DAILY Referrals: Miscellaneous,Doctor, MD [Primary Care Provider] - Stand Alone Forms: Patient Portal/API
[2022-10-15] MEDS: ACETAMINOPHEN 325 MG TABLET 975 MG PO (04:27)
[2022-10-15] MEDS: DEXAMETHASONE 10 MG/ML VIAL PO (04:27)
[2022-10-15 04:31] LABS: Strep Grp A by PCR Rapid Negative (Negative)
[2022-10-15 04:41] VITALS: BP 115/71; PULSE 74; RESP 16; O2SAT 99
== END 2022-10-15 04:42 | disposition home or self-care (01) ==
PROVIDERS: Emergency Provider Emergency Medicine
DX: J02.9 Acute pharyngitis, unspecified (principal); Z20.822 Contact with and (suspected) exposure to COVID-19
CPT/HCPCS: 0241U; 87081; 87651; 99283; J1100